=== PATIENT | male | born 1960 | race Caucasian/White ===

== ENCOUNTER 2025-09-09 10:01 | Day surgery (SDC) | payer BC ==
[~2025-09-09] VITALS: Ht 185.4 cm; Wt 93.0 kg
[~2025-09-09 10:01] MED LIST: LIDOCAINE 2% 100 MG/5 ML SDV (FOR ANES.) As Ordered ONE
[2025-09-09 12:03] VITALS: TEMP 97.3
[2025-09-09 12:25] VITALS: BP 114/87; O2SAT 97
== END 2025-09-09 12:35 | disposition home or self-care (01) ==
LOC: M OPP 10:01
PROVIDERS: ATTEND Surgery
DX: Z12.11 Encounter for screening for malignant neoplasm of colon (principal); K64.2 Third degree hemorrhoids; G47.33 Obstructive sleep apnea (adult) (pediatric)